=== PATIENT | female | born 1990 | race Caucasian/White ===

== ENCOUNTER 2022-07-22 14:15 | Emergency (ER) | payer OTHER ==
[~2022-07-22] VITALS: Ht 162.6 cm; Wt 63.5 kg
[2022-07-22 14:24] VITALS: BP 131/95
[2022-07-22 14:30] VITALS: BP 125/80
[2022-07-22 15:00] VITALS: BP 121/90
== END 2022-07-22 15:17 | disposition left against medical advice (07) | DRG 951 ==
LOC: ED 14:15 → LWOBS 15:17 → ED 15:17
DX: Z53.21 Procedure and treatment not carried out due to patient leaving prior to being seen by health care provider (principal)